=== PATIENT | male | born 1980 | race Hispanic/Latino ===

== ENCOUNTER → 2024-07-20 08:10 | Outpatient (CLI) | payer SELFPAY | PROVIDERS: PCP Family Medicine; Referring Provider Family Medicine; Visit Provider Surgery | DX: T23.302A Burn of third degree of left hand, unspecified site, initial encounter (principal); T21.31XA Burn of third degree of chest wall, initial encounter; X19.XXXA Contact with other heat and hot substances, initial encounter; R60.0 Localized edema | CPT/HCPCS: 99203; 99214 ==